=== PATIENT | female | born 1975 | race Two or more races ===

== ENCOUNTER 2023-08-31 10:09 | Emergency (ER) | payer MEDICAID, OTHER ==
[~2023-08-31] VITALS: Ht 154.9 cm; Wt 120.0 kg
[2023-08-31] MEDS ORDERED: ALBUTEROL SULF 2.5 MG/0.5ML(0.5%) NEB SOLN NEB ONE (10:45)
[2023-08-31] MEDS ORDERED: IPRATROPIUM BROM 0.5 MG/2.5ML INH SOL NEB ONE (10:45)
[2023-08-31 10:49] VITALS: BP 126/83; PULSE 110; TEMP 98.5
[2023-08-31 10:56] VITALS: RESP 24; O2SAT 96
[2023-08-31] MEDS ORDERED: DexAMETHasone SOD PHOS 10MG/1ML VIAL INJ IM ONE (11:00)
[2023-08-31 12:05] LABS: Rapid Influenza A Negative (Negative); Rapid Influenza B Negative (Negative)
[2023-08-31 12:07] LABS: COVID19 ANTIGEN SOFIA FIA NEGATIVE (NEGATIVE)
[2023-08-31 12:27] LABS: Urine Bacteria FEW /hpf (None Seen); Urine Blood Negative /uL (Negative); Urine Clarity HAZY (Clear); Urine Color Yellow (Yellow); Urine Hyaline Cast FEW /lpf (0 - 2); Urine Mucus FEW (None Seen); Urine Protein, UAD 1+ (Negative); Urine Specific Gravity 1.026 (1.001-1.035); Urine Urobilinogen Normal (Negative); Urine WBC 1 /hpf (0 - 5); Urine pH 5.5 (5.0-8.0)
[2023-08-31] MEDS ORDERED: AZIT-81 PO (13:43)
[2023-08-31] MEDS ORDERED: LORA10CA PO (13:43)
[2023-08-31] MEDS ORDERED: ACET500T58 PO (13:43)
[2023-08-31] MEDS ORDERED: BENZ100C97 PO (13:43)
== END 2023-08-31 13:59 | disposition home or self-care (01) ==
LOC: ER 10:09
DX: J40 Bronchitis, not specified as acute or chronic (principal); E66.01 Morbid (severe) obesity due to excess calories; Z68.43 Body mass index [BMI] 50.0-59.9, adult; Z20.822 Contact with and (suspected) exposure to COVID-19
CPT/HCPCS: 36415; 71046; 81001; 87426; 87804; 94640; 96372; 99284; J1100; J7644

== ENCOUNTER 2023-12-26 12:10 | Emergency (ER) | payer MEDICAID ==
[~2023-12-26] VITALS: Ht 154.9 cm; Wt 105.4 kg
[~2023-12-26 12:10] MED LIST: ACET500T58 PO; AZIT-185 PO; BENZ100C97 PO; LORA10CA PO
[2023-12-26 13:02] VITALS: BP 155/98; PULSE 91; RESP 16; TEMP 97.6; O2SAT 98
[2023-12-26] MEDS: HYDROcodone-ACET 5/325MG TAB PO ONE (13:31)
[2023-12-26] MEDS ORDERED: IBUP-1456 PO (14:23)
== END 2023-12-26 14:24 | disposition home or self-care (01) ==
LOC: ER 12:10
DX: S46.812A Strain of other muscles, fascia and tendons at shoulder and upper arm level, left arm, initial encounter (principal); S00.83XA Contusion of other part of head, initial encounter; Z79.899 Other long term (current) drug therapy; W01.0XXA Fall on same level from slipping, tripping and stumbling without subsequent striking against object, initial encounter; Y93.89 Activity, other specified; Y92.89 Other specified places as the place of occurrence of the external cause; Y99.8 Other external cause status
CPT/HCPCS: 70450; 70486; 73060

== ENCOUNTER 2024-12-14 08:45 | Inpatient (IN) | payer MEDICAID ==
[~2024-12-14] VITALS: Ht 154.9 cm; Wt 96.5 kg
[~2024-12-14 08:45] MED LIST changes: +IBUP-1456 PO
--- NOTE | 2024-12-14 09:05 | ECG ---
[facility] Test Date: 2024-12-14 Test Time: 09:01:52 Pat Name: OBI STUART Department: ER Room: 0298T Gender: F Lecturer Of Portuguese: GP : 1975 Requested By: NATHALIE RAI Order Number: [id number] Reading MD: Drake Barcenas Measurements Intervals [place] Rate: 74 P: 54 FL: 162 QRS: 40 QRSD: 97 T: 3 QT: 373 QTc: 414 Interpretive Statements Sinus rhythm Probable LVH with secondary repol abnrm Abnormal inferior Q waves Borderline ST elevation, lateral leads Electronically Signed On 12-15-2024 20:54:06 PDT by Drake Barcenas Please click the below link to view image of tracing.
--- NOTE | 2024-12-14 09:16 | ED.PDOC ---
History of Present Illness HPI Comments 49-year-old female came to the ER stating that she has been having left side flank pain which started today. She states that she passed out yesterday while talking to his family members yesterday. She states that she is dizzy while ambulating. History of hypotension sickle cell gastric bypass surgery. Denies any other symptoms. Chief Complaint: Syncope Time Seen by MD: 09:00 Primary Care Provider: UNKNOWN Reviewed Notes: Nurses Notes, Medications, Allergies Allergies: Coded Allergies: NO KNOWN ALLERGIES (Unverified , 08/31/23) Home Meds Active Scripts Ibuprofen (Ibuprofen) 800 Mg Tab, 1 TAB PO TID, #30 TAB Prov:[place] 12/26/23 Acetaminophen (Acetaminophen) 500 Mg Tab, 500 MG PO Q4HP PRN, #30 TAB Prov:HANNA MARIE 08/31/23 Benzonatate (Benzonatate) 100 Mg Cap, 1 CAP PO TID, #20 CAP Prov:HANNA MARIE 08/31/23 Loratadine (Claritin) 10 Mg Cap, 10 MG PO DAILY for 14 Days, #14 CAP Prov:HANNA MARIE 08/31/23 Azithromycin (ZITHROMAX TABLET) 250 Mg Tb, 250 MG PO DAILY for 5 Days, #6 TAB Patient should utilize 2 tablets on day 1 and then 1 tablet on day 2 through 5. Prov:HANNA MARIE 08/31/23 Information Source: Patient Mode of Arrival: Ambulatory Severity: Moderate Timing: Days Duration: Since onset Past Medical History PAST MEDICAL HISTORY: HTN Surgical History: Denies all surgeries REFERENCE TEST CLERK History: No Pertinent REFERENCE TEST CLERK History Family History Family History: Reviewed,noncontributory to illness, No family hx of Cancer, No family hx of DM, No family hx of Heart roxana, No family hx of HTN, No family hx ofKidney roxana, No family hx of Liver roxana, No family hx of Lung roxana, No family hx of Stroke Social History Smoker: Non-Smoker Alcohol: Occasionally Drugs: Denies Drug Use Lives In: Home Constitutional: denies: chills, diaphoresis, fatigue, fever, malaise, sweats, weakness, others EENTM: denies: blurred vision, double vision, ear bleeding, ear discharge, ear drainage, ear pain, ear ringing, eye pain, eye redness, hearing loss, mouth pain, mouth swelling, nasal discharge, nose bleeding, nose congestion, nose pain, photophobia, tearing, throat pain, throat swelling, voice changes, others Respiratory: denies: cough, hemoptysis, orthopnea, SOB at rest, shortness of breath, SOB with excertion, stridor, wheezing, others Cardiovascular: reports: syncope; denies: chest pain, dizzy spells, jessenia phoresis, Dyspnea on exertion, edema, irregular heart beat, left arm pain, lightheadedness, palpitations, PND, others Gastrointestinal: denies: abdomen distended, abdominal pain, blood streaked bowels, constipated, diarrhea, dysphagia, difficulty swallowing, hematemesis, melena, nausea, poor appetite, poor fluid intake, rectal bleeding, rectal pain, vomiting, others Genitourinary: denies: abnormal vagina bleeding, burning, dyspareunia, dysuria, flank pain, frequency, hematuria, incontinence, pain, , vagina discharge, urgency, others Neurological: reports: dizziness; denies: fainting, headache, left sided numbness, left sided weakness, numbness, paresthesia, pre-existing deficit, right sided numbness, right sided weakness, seizure, speech problems, tingling, tremors, weakness, others Musculoskeletal: denies: back pain, gout, joint pain, joint swelling, muscle pain, muscle stiffness, neck pain, others Integumetry: denies: bruises, change in color, change in hair/nails, dryness, laceration, lesions, lumps, rash, wounds, others Allergic/Immunocompromised: denies: Difficulty Healing, Frequent Infections, Hi ves, Itching, others Hematologic/Lymphatic: denies: anemia, blood clots, easy bleeding, easy bruising, swollen glands, others Endocrine: denies: excessive hunger, excessive sweating, excessive thirst, excessive urination, flushing, intolerance to cold, intolerance to heat, unexplained weight gain, unexplained weight loss, others Psychiatric: denies: anxiety, bipolar disorder, depression, hopeless, panic disorder, schizophrenia, sleepless, suicidal, others Physical Exam General Appearance: Moderate Distress HEENT: Normal ENT Inspection, Pharynx Normal, TMs Normal Neck: Full Range of Motion, Non-Tender, Normal, Normal Inspection Respiratory: Chest Non-Tender, Lungs Clear, No Accessory Muscle Use, No Respiratory Distress, Normal Breath Sounds Cardiovascular: No Edema, No JVD, No Murmur, No Gallop, Normal Peripheral Pulses, Regular Rate/Rhythm Breast Exam: Deferred Gastrointestinal: No Organomegaly, Non Tender, No Pulsatile Mass, Normal Bowel Sounds, Soft Genitalia: Deferred Pelvic: Deferred Rectal: Deferred Extremities: No calf tenderness, Normal capillary refill, Normal inspection, Normal range of motion, Non-tender, No pedal edema Musculoskeletal : Apperance: Normal Neurologic: Alert, orthotic practitioner II-XII nml as Tested, No Motor Deficits, Normal Affect, Normal Mood, No Sensory Deficits Cerebellar Function: NOT DONE Reflexes: NOT DONE Skin: Dry, Normal Color, Warm Peripheral Pulses: 3+ Radial (R), 3+ Radial (L) Lymphatic: No Adenopathy Was a procedure done? Was a procedure done?: No EKG EKG : Pulse Rate (adult): 90 [place]: Normal Cardiac Rhythm: NSR Differential Dx Considerations may include: Anemia Electrolyte imbalance X-Ray, Labs, Meds, VS Vital Signs Date Time Temp Pulse Resp B/P (MAP) Pulse Ox O2 Delivery O2 Flow Rate FiO2 12/14/24 11:03 97.9 78 15 151/109 (123) 96 97.9 12/14/24 09:16 90 12/14/24 09:01 74 12/14/24 09:00 98.3 85 20 149/87 (107) 96 98.3 Lab Test 12/14/24 10:55 12/14/24 08:58 12/14/24 05:35 Range/Units Urine Color Pending Urine Clarity Pending Urine pH Pending Urine Specific [place] Pending Urine Protein Pending Urine Ketones Pending Urine Blood Pending Urine Nitrite Pending Urine Bilirubin Pending Urine Urobilinogen Pending Urine Leukocyte Esterase Pending Urine RBC Pending Urine Microscopic WBC Pending Urine Squamous Epithelial Cells Pending Urine Bacteria Pending Urine Glucose Pending POC Glucose 94 70-106 mg/dl White Blood Count 6.2 4.4-10.8 10^3/uL Red Blood Count 4.38 4.0-5.20 10^6/uL Hemoglobin 13.1 12.2-16.2 g/dL Hematocrit 38.2 36.0-46.0 % Mean Corpuscular Volume 87.3 80.0-100.0 fL Mean Corpuscular Hemoglobin 29.8 28.0-32.0 pg Mean Corpuscular Hemoglobin Concent 34.2 32.0-36.0 g/dL Red Cell Distribution Width 17.4 H 11.8-14.3 % Platelet Count 224 140-450 10^3/uL Mean Platelet Volume 9.3 6.9-10.8 fL Neutrophils (%) (Auto) 48.0 37.0-80.0 % Lymphocytes (%) (Auto) 42.3 10.0-50.0 % Monocytes (%) (Auto) 8.0 0.0-12.0 % Eosinophils (%) (Auto) 1.3 0.0-7.0 % Basophils (%) (Auto) 0.4 0.0-2.0 % Neutrophils # (Auto) 3.0 1.6-8.6 10 ^3/uL Lymphocytes # (Auto) 2.6 0.4-5.4 10 ^3/uL Monocytes # (Auto) 0.5 0-1.3 10 ^3/uL Eosinophils # (Auto) 0.1 0-0.8 10 ^3/uL Basophils # (Auto) 0 0-0.2 10 ^3/uL Nucleated Red Blood Cells 0.2 % Sodium Level 142 136-145 mmol/L Potassium Level 3.6 3.5-5.1 mmol/L Chloride Level 109 H 98-107 mmol/L Carbon Dioxide Level 26 20-31 mmol/L Anion Gap 7 5-15 Blood Urea Nitrogen 7 L 9-23 mg/dL Creatinine 0.65 0.550-1.02 mg/dL Glomerular Filtration Rate Calc 107 >90 mL/min BUN/Creatinine Ratio 10.8 10.0-20.0 Serum Glucose 89 74-106 mg/dL Calcium Level 9.4 8.7-10.4 mg/dL Troponin I High Sensitivity < 3 L </=34 ng/L EXAM: CT HEAD WITHOUT CONTRAST INDICATION: tia TECHNIQUE: CT of the head without intravenous contrast. Radiation Dose : 1. Head: CT Dose: CTDI volume is 49.72 mGy. Dose-length product is 697.86 mGy*cm The dose indicators for CT are the volume Computed Tomography (CT) Dose Index (CTDIvol) and the Dose Length Product (DLP), and are measured in units of mGy and mGy-cm, respectively. These indicators are not patient dose, but values generated from the CT scanner acquisition factors. The report includes radiation exposure data for exposures received during this examination. COMPARISON: CT HEAD WITHOUT CONTRAST on DOS: 12/26/23 FINDINGS: There is no evidence of acute intracranial hemorrhage, extra-axial collection, mass effect, midline shift, herniation or hydrocephalus. The ventricles, sulci and cisterns are age appropriate. The mcgraw-white differentiation is intact. Patchy periventricular and subcortical white matter hypoattenuation is nonspecific but may be related to small vessel ischemic disease. The visualized paranasal sinuses and mastoid air cells are clear. The surrounding soft tissues and osseous structures are unremarkable. IMPRESSION: 1. No acute intracranial abnormality. Radiation optimization: All CT scans at this facility use at least one of these dose optimization techniques: automated exposure control mA and/or kV adjustment per patient size (includes targeted exams where dose is matched to clinical indication) or iterative reconstruction. Patient alert. Complaining of syncope. Vitals stable. Answering questions. Possible TIA. Unable to ambulate without feeling dizzy. Possible autonomic disorder. Establish intravenous access. Blood pressure slightly elevated. Was given clonidine. Neurology consultation. EKG reviewed does not show any acute changes. CT of the head reviewed does not show any acute changes. Cardiac marker within normal limits. WBC within normal limits. Hemoglobin within normal limits. Reviewed her history. Explained to the patient. Continue cardiac monitoring. EKG reviewed does not show any acute changes. Time of 1ST Reevaluation: 09:14 Reevaluation 1ST: Unchanged Patient Education/Counseling: Diagnosis, Treatment, Prognosis Family Education/Counseling: No Family Present Departure 1 Departure Time of Disposition: 09:15 Impression: Primary Impression: Autonomic disorder Additional Impressions: Syncope Qualified Codes: R55 - Syncope and collapse Hypertension Qualified Codes: I10 - Essential (primary) hypertension Disposition: ADMITTED INPATIENT Admit to: Med Surg Condition: Guarded Critical Care Note Critical Care Time?: No Stability Stability form required: No Heart Score Heart Score: Heart Score Response (Comments) Value History Slightly Suspicious 0 EKG Normal 0 Age 45-64 1 Risk Factors >3 or Hx ASHD 2 Troponin Normal limit 0 Total 3 I personally scribed for NATHALIE RAI MD ([email or web address]) on 12/14/24 at 11:25. Electronically submitted by Bo Duran ([email or web address]). NATHALIE RAI MD Dec 14, 2024 09:16
--- NOTE | 2024-12-14 09:47 | DVH ---
EXAM: CT HEAD WITHOUT CONTRAST INDICATION: tia TECHNIQUE: CT of the head without intravenous contrast. Radiation Dose : 1. Head: CT Dose: CTDI volume is 49.72 mGy. Dose-length product is 697.86 mGy*cm The dose indicators for CT are the volume Computed Tomography (CT) Dose Index (CTDIvol) and the Dose Length Product (DLP), and are measured in units of mGy and mGy-cm, respectively. These indicators are not patient dose, but values generated from the CT scanner acquisition factors. The report includes radiation exposure data for exposures received during this examination. COMPARISON: CT HEAD WITHOUT CONTRAST on DOS: 12/26/23 FINDINGS: There is no evidence of acute intracranial hemorrhage, extra-axial collection, mass effect, midline s hift, herniation or hydrocephalus. The ventricles, sulci and cisterns are age appropriate. The mcgraw-white differentiation is intact. Patchy periventricular and subcortical white matter hypoattenuation is nonspecific but may be related to small vessel ischemic disease. The visualized paranasal sinuses and mastoid air cells are clear. The surrounding soft tissues and osseous structures are unremarkable. IMPRESSION: 1. No acute intracranial abnormality. Radiation optimization: All CT scans at this facility use at least one of these dose optimization vega hniques: automated exposure control mA and/or kV adjustment per patient size (includes targeted exam s where dose is matched to clinical indication) or iterative reconstruction.
[2024-12-14 10:07] LABS: Basophils # (auto) 0 10 ^3/uL (0-0.2); Basophils % (auto) 0.4 % (0.0-2.0); Eosinophils # (auto) 0.1 10 ^3/uL (0-0.8); Eosinophils % (auto) 1.3 % (0.0-7.0); Hematocrit 38.2 % (36.0-46.0); Hemoglobin 13.1 g/dL (12.2-16.2); Lymphocytes # (auto) 2.6 10 ^3/uL (0.4-5.4); Lymphocytes % (auto) 42.3 % (10.0-50.0); Mean Corpuscular Hemoglobin 29.8 pg (28.0-32.0); Mean Corpuscular Hgb Conc. 34.2 g/dL (32.0-36.0); Mean Corpuscular Volume 87.3 fL (80.0-100.0); Monocytes # (auto) 0.5 10 ^3/uL (0-1.3); Nucleated Red Blood Cells % 0.2 %; Platelet Count (auto) 224 10^3/uL (140-450); Red Blood Cells 4.38 10^6/uL (4.0-5.20); Red Cell Distribution Width 17.4 % (11.8-14.3); White Blood Cell 6.2 10^3/uL (4.4-10.8)
[2024-12-14 10:10] LABS: Potassium 3.6 mmol/L (3.5-5.1); Sodium 142 mmol/L (136-145)
[2024-12-14 10:11] LABS: Anion Gap 7 (5-15); Calcium 9.4 mg/dL (8.7-10.4); Carbon Dioxide 26 mmol/L (20-31)
[2024-12-14 10:16] LABS: Chloride 109 mmol/L (98-107); Glucose 89 mg/dL (74-106)
[2024-12-14 10:17] LABS: BUN/Creatinine Ratio 10.8 (10.0-20.0); Blood Urea Nitrogen 7 mg/dL (9-23)
[2024-12-14 11:28] LABS: Urine Bacteria FEW /hpf (None Seen); Urine Blood Negative /uL (Negative); Urine Clarity Turbid (Clear); Urine Color Light-Orange (Yellow); Urine Mucus FEW (None Seen); Urine Protein, UAD TRACE (Negative); Urine Specific Gravity 1.021 (1.001-1.035); Urine Squamous Epithelial Cell FEW /hpf (<5); Urine Urobilinogen Normal (Negative); Urine WBC 26 /HPF (0-5); Urine pH 5.5 (5.0-9.0)
--- NOTE | 2024-12-14 22:57 | DVHHPRES ---
History of Present Illness Resident Creating Document: SELVIN LONG RESIDENT History of Present Illness Patient is a 49-year-old female with past medical history of hypertension, sickle cell trait, gastric bypass surgery, who comes in due to flank pain. According to the patient, yesterday on 12/13/24 she started experiencing a left- sided flank pain accompanied with lightheadedness, per patient while she was sitting on the floor she experienced a brief episode of blacking out where she went down on her back and hit the back of her head, denies any confusion after words, denies any similar symptoms before in the past. In the ER UA showed 2+ nitrites, 1+ leukocyte esterase, 26 WBCs and few bacteria, head CT was unremarkable. Patient was also noted to have a left-sided costovertebral angle tenderness and right-sided flank pain and tenderness to palpation, CT abdomen pelvis did not show any perinephric fat stranding. Patient was started on IV ceftriaxone. Past Medical History Hypertension, sickle cell trait Past Surgical History Right arm surgery, gastric bypass surgery Past Social History Smoking: Denies Alcohol: Drinks 2-3 beers daily Drugs: Uses marijuana gummies frequently, denies using any other drugs. Review of Systems Constitutional: Yes: Chills, Malaise; No: Fever, Sweats, Weakness, Other Eyes: No: Pain, Vision change, Conjunctivae inflammation, Eyelid inflammation, Other, Redness ENT: No: Ear pain, Ear discharge, Nose pain, Nose discharge, Nose congestion, Mouth pain, Mouth swelling, Throat pain, Throat swelling, Other Respiratory: No: Cough, Dry, Shortness of breath, SOB with excertion, Wheezing, Hemoptysis, Pleuritic Pain, Sputum, Wheezing, Other Cardiovascular: No: Chest Pain, Palpitations, Orthopnea, Paroxysmal Noc. Dyspnea, Edema, Lt Headedness, Other Gastrointestinal: Diarrhea (Notes having 3+ bowel movements yesterday, watery); No: Nausea, Vomiting, Abdominal Pain, Constipation, Melena, Hematochezia, Other Genitourinary: No Dysuria, No Frequency; Incontinence; No Hematuria, No Retention; Other (Urinary hesitancy) Musculoskeletal: No: other, neck pain, shoulder pain, arm pain, back pain, hand pain, leg pain, foot pain Skin: No: Rash, Lesions, Jaundice, Bruising, Other Neurological: No: Weakness, Numbness, Incoordination, Change in speech, Confusion, Seizures, Other Allergies: Coded Allergies: NO KNOWN ALLERGIES (Unverified , 08/31/23) Medications Current Medications Medications Dose Ordered Sig/Zuleyma Route Start Time Stop Time Status Last Admin Dose Admin Ondansetron HCl 4 mg Q4HP PRN IV 12/14/24 23:00 Ceftriaxone Sodium 50 ml @ 100 mls/hr DAILY@2100 IV 12/15/24 21:00 Exam Vital Signs Vital Signs Date Time Temp Pulse Resp B/P (MAP) Pulse Ox O2 Delivery O2 Flow Rate FiO2 12/14/24 11:03 97.9 78 15 151/109 (123) 96 97.9 General Appearance: Alert, Oriented X3, Cooperative, No acute distress HEENT: Atraumatic, PERRLA, EOMI, Other (Dry mucous membranes) Respiratory: Clear to auscultation, Normal air movement Cardiovascular: Regular rate, Normal S1, Normal S2 Abdominal: Normal bowel sounds, Other (Left costovertebral angle tenderness. Right flank tenderness to palpation) Extremities: Other (Trace lower extremity edema) Skin: No rashes, No breakdown Neuro: Normal gait, Normal speech, Strength at 5/5 X4 ext, Normal tone, Sensation intact Psych/Mental Status: Mental status NL, Mood NL Labs/Xrays Labs Test 12/14/24 10:55 12/14/24 08:58 12/14/24 05:35 Range/Units Urine Color Light-orange Yellow Urine Clarity Turbid H Clear Urine pH 5.5 5.0-9.0 Urine Specific [place] 1.021 1.001-1.035 Urine Protein Trace H Negative Urine Ketones Negative Negative Urine Blood Negative Negative /uL Urine Nitrite 2+ H Negative Urine Bilirubin Negative Negative Urine Urobilinogen Normal Negative mg/dL Urine Leukocyte Esterase 1+ Negative /uL Urine RBC 1 0 - 4 /hpf Urine Microscopic WBC 26 H 0-5 /HPF Urine Squamous Epithelial Cells Few <5 /hpf Urine Bacteria Few H None Seen /hpf Urine Mucus Few None Seen Urine Glucose Normal Normal mg/dL POC Glucose 94 70-106 mg/dl White Blood Count 6.2 4.4-10.8 10^3/uL Red Blood Count 4.38 4.0-5.20 10^6/uL Hemoglobin 13.1 12.2-16.2 g/dL Hematocrit 38.2 36.0-46.0 % Mean Corpuscular Volume 87.3 80.0-100.0 fL Mean Corpuscular Hemoglobin 29.8 28.0-32.0 pg Mean Corpuscular Hemoglobin Concent 34.2 32.0-36.0 g/dL Red Cell Distribution Width 17.4 H 11.8-14.3 % Platelet Count 224 140-450 10^3/uL Mean Platelet Volume 9.3 6.9-10.8 fL Neutrophils (%) (Auto) 48.0 37.0-80.0 % Lymphocytes (%) (Auto) 42.3 10.0-50.0 % Monocytes (%) (Auto) 8.0 0.0-12.0 % Eosinophils (%) (Auto) 1.3 0.0-7.0 % Basophils (%) (Auto) 0.4 0.0-2.0 % Neutrophils # (Auto) 3.0 1.6-8.6 10 ^3/uL Lymphocytes # (Auto) 2.6 0.4-5.4 10 ^3/uL Monocytes # (Auto) 0.5 0-1.3 10 ^3/uL Eosinophils # (Auto) 0.1 0-0.8 10 ^3/uL Basophils # (Auto) 0 0-0.2 10 ^3/uL Nucleated Red Blood Cells 0.2 % Sodium Level 142 136-145 mmol/L Potassium Level 3.6 3.5-5.1 mmol/L Chloride Level 109 H 98-107 mmol/L Carbon Dioxide Level 26 20-31 mmol/L Anion Gap 7 5-15 Blood Urea Nitrogen 7 L 9-23 mg/dL Creatinine 0.65 0.550-1.02 mg/dL Glomerular Filtration Rate Calc 107 >90 mL/min BUN/Creatinine Ratio 10.8 10.0-20.0 Serum Glucose 89 74-106 mg/dL Calcium Level 9.4 8.7-10.4 mg/dL Troponin I High Sensitivity < 3 L </=34 ng/L Assessment/Plan Assessment/Plan Acute complicated UTI, pyelonephritis can not be ruled out Generalized weakness due to above Dizziness due to above - head CT: No acute intracranial abnormality - CT abdomen pelvis: Heather-en-Y gastric bypass surgery with a small bowel anastomosis in the right mid to lower abdomen. No small bowel obstruction, free air, or fluid collection. Normal appendix. Diffuse hepatic steatosis, geographic in the left lobe of the liver. Small hiatal hernia. - IV ceftriaxone - patient refused Tylenol and ibuprofen, [place] 5 once for flank pain - patient denies taking ibuprofen or acetaminophen at home as mentioned in med rec, due to her gastric bypass surgery history Acute onset diarrhea, now improving - ordered stool culture - stool WBCs. Stool occult blood Obesity, class 3 Marijuana dependence - counseled GERD - Protonix Hypertension - resumed home medication hydrochlorothiazide Goals of care: Full code, discussed for >16 minutes on 12/14/2024 Plan discussed with patient Plan discussed with Dr. Castro Plan discussed with: Patient, Other (RN) My Orders Orders - SELVIN LONG RESIDENT Procedure Category Date Status Time Admit ADMIT 12/14/24 Transmitted 22:47 Allergies [place] 12/14/24 In Process 22:47 Code Status CODE 12/14/24 Transmitted 22:47 Ondansetron Hcl PHA 12/14/24 In Process (Zofran) 23:00 Complete Blood Count LAB 12/15/24 Verified 04:00 Comprehensive LAB 12/15/24 Verified Metabolic Panel 04:00 Cardiac DIET 12/15/24 Transmitted Diet-2gna,Lofat,Lochol Breakfast Condition: Unstable [place] 12/14/24 In Process 22:47 Sequential [place] 12/14/24 In Process Compression Device Notify Md Of Changes [place] 12/14/24 In Process From Base 22:47 Ceftriaxone 1gm/50ml PHA 12/15/24 In Process D5w (Rocephin) 21:00 Ceftriaxone 1gm/50ml PHA 12/14/24 In Process D5w (Rocephin) 23:00 Ct Ab Pel Wo Con-No CT 12/14/24 Logged Oral Or Iv 22:47 Beta Hcg, Quantitative LAB 12/14/24 In Process 22:47 Test, Urine LAB 12/14/24 In Process 22:47 Stool Occult Blood LAB 12/14/24 Logged 22:47 Stool Bacterial ALEX 12/14/24 Logged Culture 22:47 Stool Wbc LAB 12/14/24 Logged 22:47 Covid19 Antigen Pari LAB 12/14/24 Logged Rapid Influenza A&B LAB 12/14/24 Logged 22:47 Thyroid Stimulating LAB 12/14/24 In Process Hormone 22:47 Date of Service: Dec 14, 2024 Billing Provider: MIREILLE CASTRO MD Common Visit Codes: 54520-FYRHSMX INP/OBS CARE (HIGH) SELVIN LONG RESIDENT Dec 14, 2024 22:57 MIREILLE CASTRO MD Dec 15, 2024 09:57
[2024-12-14] MEDS ORDERED: ONDANSETRON HCL 4 MG/2 ML VIAL IV PRN (23:00)
[2024-12-14 23:30] VITALS: PULSE 66; RESP 16; O2SAT 96
[2024-12-14 23:34] LABS: Beta HCG, Quantitative 3.5 mIU/mL (1.5-4.2)
[2024-12-14 23:37] LABS: Thyroid Stimulating Hormone 1.35 uIU/mL (0.55-4.78)
[2024-12-14] MEDS: cefTRIAXone 1GM/50ML D5W 50 ML IV ONE (23:42)
[2024-12-14] MEDS: ACETAMINOPHEN 500 MG TAB or CAP PO ONE (23:42)
[2024-12-14] MEDS ORDERED: ACETAMINOPHEN 325 MG TAB PO PRN (23:45)
[2024-12-15] VITALS (7 sets, daily range): BP systolic 125–171; BP diastolic 80–108; PULSE 68–92; RESP 18–19; TEMP 97.4–98; O2SAT 93–100
--- NOTE | 2024-12-15 00:32 | DVH ---
CLINICAL HISTORY: L CVA tenderness TECHNIQUE: CT of the abdomen and pelvis was performed without intravenous contrast. This exam was per formed according to our departmental dose optimization program. Up-to-date CT equipment and radiation dose reduction techniques are utilized as appropriate. CTDI: 22.48+ 0.14 DLP: WID: COMPARISON: None FINDINGS: Lower Thorax: Linear bibasilar scarring or atelectasis. Small hiatal hernia. Mild cardiomegaly. Liver and Biliary system: Normal-sized liver. There is diffuse hepatic steatosis which is geographic in the left lobe of the liver. No definite hepatic lesion. Gallbladder is normal caliber. There is n o biliary ductal dilatation. Spleen: Unremarkable. Adrenal Glands and Kidneys: Normal adrenal glands. Tiny hypodensity in the upper pole left kidney is not optimally evaluated without contrast. No hydronephrosis or nephrolithiasis. Pancreas and Retroperitoneum: Atrophic pancreas. No retroperitoneal lymphadenopathy. Aorta and Major Vessels: Aortoiliac vessels are normal in caliber containing trace calcified atherosc lerotic plaque. Bowel, Mesentery and Peritoneal space: Normal appendix. Normal caliber small and large bowel. Prior R oux-en-Y gastric bypass surgery with a small bowel anastomosis in the right mid to lower abdomen. Sma ll hiatal hernia. There is no free air or fluid collection. Pelvis: Unremarkable. Abdominal wall and Osseous Structures: No destructive osseous lesion. Multilevel lower thoracic and l umbar spondylosis. IMPRESSION: 1. Heather-en-Y gastric bypass surgery with a small bowel anastomosis in the right mid to lower abdomen. No small bowel obstruction, free air, or fluid collection. Normal appendix. 2. Diffuse hepatic steatosis, geographic in the left lobe of the liver. 3. Small hiatal hernia.
[2024-12-15] MEDS: HYDROcodone-ACET 5/325MG TAB PO ONE (02:30)
[2024-12-15] MEDS: hydroCHLOROthiazide 25 MG TAB PO SCH (04:00)
[2024-12-15 05:43] LABS: Basophils # (auto) 0.1 10 ^3/uL (0-0.2); Eosinophils # (auto) 0.1 10 ^3/uL (0-0.8); Eosinophils % (auto) 0.9 % (0.0-7.0); Hematocrit 38.2 % (36.0-46.0); Lymphocytes # (auto) 2.9 10 ^3/uL (0.4-5.4); Lymphocytes % (auto) 35.8 % (10.0-50.0); Mean Corpuscular Hemoglobin 30.5 pg (28.0-32.0); Mean Corpuscular Hgb Conc. 34.1 g/dL (32.0-36.0); Mean Corpuscular Volume 89.3 fL (80.0-100.0); Monocytes # (auto) 0.6 10 ^3/uL (0-1.3); Monocytes % (auto) 7.9 % (0.0-12.0); Neutrophils # (auto) 4.4 10 ^3/uL (1.6-8.6); Neutrophils % (auto) 54.4 % (37.0-80.0); Nucleated Red Blood Cells % 0.2 %; Platelet Count (auto) 219 10^3/uL (140-450); Red Blood Cells 4.28 10^6/uL (4.0-5.20); Red Cell Distribution Width 17.1 % (11.8-14.3)
[2024-12-15 05:56] LABS: Alanine Aminotransferase 21 U/L (7-40); Albumin 3.8 g/dL (3.2-4.8); Alkaline Phosphatase 85 U/L (46-116); Anion Gap 8 (5-15); Aspartate Aminotransferase 21 U/L (13-40); BUN/Creatinine Ratio 10.6 (10.0-20.0); Calcium 9.4 mg/dL (8.7-10.4); Carbon Dioxide 25 mmol/L (20-31); Chloride 105 mmol/L (98-107); Glucose 90 mg/dL (74-106); Potassium 3.6 mmol/L (3.5-5.1); Sodium 138 mmol/L (136-145); Total Protein 7.4 g/dL (5.7-8.2)
[2024-12-15 05:57] LABS: Bilirubin, Total 1.1 mg/dL (0.2-1.0)
[2024-12-15 06:03] LABS: Blood Urea Nitrogen 7 mg/dL (9-23)
[2024-12-15] MEDS: PANTOPRAZOLE 40 MG TAB PO SCH (06:19)
--- NOTE | 2024-12-15 09:18 | DVHPNRES ---
Progress Note Date Seen: Dec 15, 2024 Resident Creating Document: ISIDRO ISBELL RESIDENT Has the PT tested + for MRSA If YES, has PT been informed?: No Medical Necessity Reason Pt with a Central, PICC or Fol: No Subjective Review of Systems Patient is a 49-year-old female with past medical history of hypertension, sickle cell trait, and gastric bypass surgery who presents to ED due to a possible syncope episode On 12/13/24, She reports that while sitting she had a brief episode of syncope with loss of consciousness, with prodromes, during which she fell backward and hit the back of her head and her back, she began experiencing left-sided flank pain after that.She denies any confusion afterward and states this was the first time she experienced such symptoms. In the ED, UA revealed 2+ nitrites, 1+ leukocyte esterase, 26 WBCs, and few bacteria. Head CT was unremarkable. Exam showed left costovertebral angle tenderness and right-sided flank pain with tenderness to palpation. CT abdomen/pelvis did not reveal any perinephric fat stranding. Patient was started on IV ceftriaxone. Patient was placed on telemetry, ECHO and orthostatic vitals were ordered Past Medical History: Hypertension, sickle cell trait Past Surgical History: Right arm surgery, gastric bypass surgery Past Social History: Smoking: Denies Alcohol: Drinks 23 beers daily Drugs: Uses marijuana gummies frequently, denies other drug use. Objective vital signs Vital Sign Date Time Temp Pulse Resp B/P (MAP) Pulse Ox O2 Delivery O2 Flow Rate FiO2 12/15/24 08:00 73 19 98 Room Air* 0 21 12/15/24 08:00 97.7 164/86 (112) 97.7 Total Intake and Output 12/14/24 12/14/24 12/15/24 15:00 23:00 07:00 Intake Total 50 ml Balance 50 ml medications Current Medications Medications Dose Ordered Sig/Zuleyma Route Start Time Stop Time Status Last Admin Dose Admin Ondansetron HCl 4 mg Q4HP PRN IV 12/14/24 23:00 Ceftriaxone Sodium 50 ml @ 100 mls/hr DAILY@2100 IV 12/15/24 21:00 Acetaminophen 650 mg Q6HP PRN PO 12/14/24 23:45 Pantoprazole Sodium 40 mg DAILY@0600 PO 12/15/24 06:00 12/15/24 06:19 40 MG Hydrochlorothiazide 12.5 mg DAILY PO 12/15/24 04:00 Examination General Appearance: Alert, Oriented X3, Cooperative, No acute distress HEENT: Atraumatic, PERRLA, EOMI Respiratory: Clear to auscultation, Normal air movement Cardiovascular: Regular rate, Normal S1, Normal S2 Abdominal: Normal bowel sounds, Other (Left costovertebral angle tenderness. Right flank tenderness to palpation) Extremities: Other (Trace lower extremity edema) Skin: No rashes, No breakdown Neuro: Normal gait, Normal speech, Strength at 5/5 X4 ext, Normal tone, Sensation intact Psych/Mental Status: Mental status NL, Mood NL laboratory and microbiology Laboratory Tests 12/15/24 05:15 Test 12/15/24 05:15 Range/Units Serum Glucose 90 74-106 mg/dL Problem List/Assessment/Plan Problem List/Assessment/Plan Syncope Rule out cardiogenic syncope Rule out vasovagal syncope ECHO Telemetry Orthostatic vitals head CT: No acute intracranial abnormality Acute complicated UTI - CT abdomen pelvis: Heather-en-Y gastric bypass surgery with a small bowel anastomosis in the right mid to lower abdomen. No small bowel obstruction, free air, or fluid collection. Normal appendix. Diffuse hepatic steatosis, geographic in the left lobe of the liver. Small hiatal hernia. - IV ceftriaxone - patient refused Tylenol and ibuprofen, ketorolac given - patient denies taking ibuprofen or acetaminophen at home as mentioned in med rec, due to her gastric bypass surgery history Acute onset diarrhea, now improving - ordered stool culture - stool WBCs. Stool occult blood Obesity, class 3 Marijuana dependence - counseled GERD - Protonix Hypertension - HCTZ -Losartan -Nifedipine Goals of care: Full code, discussed for >16 minutes on 12/14/2024 Plan discussed with patient Plan discussed with Dr. Gonzalez Plan discussed with: Patient, Other (rn) My Orders My Orders Orders - ISIDRO ISBELL Procedure Category Date Status Time Echo 2d Mode Cardiac US 12/15/24 Logged DOP 09:09 Admit ADMIT 12/15/24 Transmitted 09:09 Transfer Orders XFER 12/15/24 Transmitted 09:10 Orthostatic Vital ORDERS 12/15/24 Transmitted Signs 09:11 Date of Service: Dec 15, 2024 Billing Provider: MICHELLE GONZALEZ MD Common Visit Codes: [id number] INP/OBS CARE(HIGH) ISIDRO ISBELL RESIDENT Dec 15, 2024 09:18 MICHELLE GONZALEZ MD Dec 21, 2024 21:51
[2024-12-15 09:43] LABS: COVID19 ANTIGEN SOFIA FIA NEGATIVE (NEGATIVE); Rapid Influenza A Negative (Negative); Rapid Influenza B Negative (Negative)
[2024-12-15] MEDS ORDERED: hydroCHLOROthiazide 25 MG TAB PO SCH (10:00)
[2024-12-15] MEDS: LOSARTAN POTASSIUM 50 MG TAB PO SCH (10:34)
[2024-12-15] MEDS ORDERED: TRAM50TA2 PO (12:31)
[2024-12-15] MEDS ORDERED: HYDR-4798 PO (12:31)
[2024-12-15] MEDS ORDERED: HYDR-2792 PO (12:31)
[2024-12-15] MEDS: KETOROLAC TROMETH 30 MG/ML 1ML VIAL IV PRN (12:42)
[2024-12-15] MEDS: NIFEdipine ER 30 MG TAB PO SCH (13:05)
--- NOTE | 2024-12-15 14:59 | DVHSR ---
APPROVED REPORT EXAM: Two-dimensional and M-mode echocardiogram with Doppler and color Doppler. Blood Pressure: 164/86 mmHg INDICATION work up probable cardiogenic syncope RISK FACTORS Height: 61, Weight: 212 DIMENSIONS LVDd4.4 (3.8-5.7cm)LA (2D)3.9 (1.9-4.0cm)Aortic Root3.2 (2.0-3.7cm) LVDs2.9 (2.5-4.0cm)LA (MM) (1.9-4.0cm)Aortic Cusp Exc1.9 (1.5-2.0cm) EF (%) 65.0 (55-70%)Rt. Atrium3.3 (1.9-4.0cm)Asc. Aorta cm IVSd0.9 (0.7-1.1cm)RV (D) (1.8-2.4cm) PWd0.9 (0.7-1.1cm) Mitral Valve MitralMitral Stenosis E wave1.00m/sMV Mean GR.mmHg A wave0.95m/sMV Peak GR.125mmHg E/A ratio1.12D MVAcm2 DECEL [id number] 1/2 [id number] IVRTmsDop MVA3.50cm2 Aortic Valve Aortic ValveAortic Stenosis V11.29m/Theodore Mean GR.5mmHg V21.50m/Theodore Peak GR.9mmHg LVOT Diameter1.7 (1.8-2.4cm)Doppler AVA1.95cm2 AI P 1/2 Lbnl872.34ms Pulmonic Valve V20.77m/s Tricuspid Valve TR Velocity2.46m/s [id number] Conclusion lvef 70% mild LVH mild mitral regurg mild tricuspid regurg normal rv function no severe valve abnormalities noted
[2024-12-15] MEDS: cefTRIAXone 1GM/50ML D5W 50 ML IV SCH (21:02)
[2024-12-16] VITALS (8 sets, daily range): BP systolic 105–140; BP diastolic 74–90; PULSE 61–82; RESP 16–20; TEMP 97.8–98.1; O2SAT 95–97
[2024-12-16] MEDS: LOSARTAN POTASSIUM 50 MG TAB PO SCH (01:07)
[2024-12-16 05:33] LABS: Basophils # (auto) 0 10 ^3/uL (0-0.2); Basophils % (auto) 0.6 % (0.0-2.0); Eosinophils # (auto) 0.1 10 ^3/uL (0-0.8); Eosinophils % (auto) 1.7 % (0.0-7.0); Hematocrit 36.9 % (36.0-46.0); Hemoglobin 12.5 g/dL (12.2-16.2); Lymphocytes # (auto) 3.1 10 ^3/uL (0.4-5.4); Lymphocytes % (auto) 43.6 % (10.0-50.0); Mean Corpuscular Hemoglobin 30.3 pg (28.0-32.0); Mean Corpuscular Hgb Conc. 33.8 g/dL (32.0-36.0); Mean Corpuscular Volume 89.6 fL (80.0-100.0); Monocytes # (auto) 0.6 10 ^3/uL (0-1.3); Monocytes % (auto) 9.1 % (0.0-12.0); Neutrophils # (auto) 3.2 10 ^3/uL (1.6-8.6); Nucleated Red Blood Cells % 0.4 %; Platelet Count (auto) 203 10^3/uL (140-450); Red Blood Cells 4.12 10^6/uL (4.0-5.20); Red Cell Distribution Width 16.9 % (11.8-14.3)
[2024-12-16 07:55] LABS: Alanine Aminotransferase 20 U/L (7-40); Albumin 3.4 g/dL (3.2-4.8); Alkaline Phosphatase 77 U/L (46-116); Anion Gap 7 (5-15); Aspartate Aminotransferase 24 U/L (13-40); BUN/Creatinine Ratio 7.9 (10.0-20.0); Calcium 9.1 mg/dL (8.7-10.4); Carbon Dioxide 25 mmol/L (20-31); Glucose 84 mg/dL (74-106); Sodium 141 mmol/L (136-145); Total Protein 6.4 g/dL (5.7-8.2)
[2024-12-16 07:56] LABS: Bilirubin, Total 0.8 mg/dL (0.2-1.0)
[2024-12-16 08:03] LABS: Blood Urea Nitrogen 5 mg/dL (9-23); Chloride 109 mmol/L (98-107); Potassium 3.5 mmol/L (3.5-5.1)
--- NOTE | 2024-12-16 21:35 | DVHPN2 ---
Assessment/Plan Assessment/Plan progress note Patient is a 49-year-old female with past medical history of hypertension, sickle cell trait, and gastric bypass surgery who presents to ED due to a possib le syncope episode On 12/13/24, She reports that while sitting she had a brief episode of syncope with loss of consciousness, with prodromes, during which she fell backward and hit the back of her head and her back, she began experiencing left-sided flank pain after that.She denies any confusion afterward and states this was the first time she experienced such symptoms. In the ED, UA revealed 2+ nitrites, 1+ leukocyte esterase, 26 WBCs, and few bacteria. Head CT was unremarkable. Exam showed left costovertebral angle tenderness and right-sided flank pain with tenderness to palpation. CT abdomen/pelvis did not reveal any perinephric fat stranding. Patient was started on IV ceftriaxone. Patient was placed on telemetry, ECHO and orthostatic vitals were ordered seen today during rounds, pain improved. labs ekg imaging reviewed assessment and plan Syncope Rule out cardiogenic syncope Rule out vasovagal syncope ECHO Telemetry Orthostatic vitals head CT: No acute intracranial abnormality Acute complicated UTI - CT abdomen pelvis: Heather-en-Y gastric bypass surgery with a small bowel anastomosis in the right mid to lower abdomen. No small bowel obstruction, free air, or fluid collection. Normal appendix. Diffuse hepatic steatosis, geographic in the left lobe of the liver. Small hiatal hernia. - IV ceftriaxone - patient refused Tylenol and ibuprofen, ketorolac given - patient denies taking ibuprofen or acetaminophen at home as mentioned in med rec, due to her gastric bypass surgery history Acute onset diarrhea, now improving - ordered stool culture - stool WBCs. Stool occult blood Obesity, class 3 Marijuana dependence - counseled GERD - Protonix Hypertension - HCTZ -Losartan -Nifedipine Plan discussed with: Patient Date of Service: Dec 16, 2024 Billing Provider: MICHELLE GONZALEZ MD Common Visit Codes: [id number] INP/OBS CARE(MOD) MICHELLE GONZALEZ MD Dec 16, 2024 21:35
[2024-12-16] MEDS: CYCLOBENZAPRINE HCL 10 MG TAB PO SCH (22:16)
[2024-12-17] VITALS (7 sets, daily range): BP systolic 89–103; BP diastolic 61–76; PULSE 63–73; RESP 17–18; TEMP 97.7–98.3; O2SAT 90–96
[2024-12-17] MEDS ORDERED: IBU600T PO (13:25)
[2024-12-17] MEDS ORDERED: NITR-87 PO (13:25)
[2024-12-17] MEDS ORDERED: TRAM-626 PO (13:25)
[2024-12-17] MEDS ORDERED: CYCL-837 PO (13:25)
[2024-12-17] MEDS ORDERED: ACET-1079 PO (13:25)
--- NOTE | 2024-12-19 14:29 | DVHDSRES ---
Discharge Summary Date of Admission Resident Creating Document: ISIDRO ISBELL RESIDENT Dec 14, 2024 at 22:47 Date of Discharge: Dec 17, 2024 Admitting Diagnosis syncope Labs/Diagnostic Data: Laboratory Results Test 12/16/24 04:35 12/15/24 07:20 12/14/24 10:55 12/14/24 08:58 White Blood Count 7.0 10^3/uL (4.4-10.8) Red Blood Count 4.12 10^6/uL (4.0-5.20) Hemoglobin 12.5 g/dL (12.2-16.2) Hematocrit 36.9 % (36.0-46.0) Mean Corpuscular Volume 89.6 fL (80.0-100.0) Mean Corpuscular Hemoglobin 30.3 pg (28.0-32.0) Mean Corpuscular Hemoglobin Concent 33.8 g/dL (32.0-36.0) Red Cell Distribution Width 16.9 % (11.8-14.3) Platelet Count 203 10^3/uL (140-450) Mean Platelet Volume 9.4 fL (6.9-10.8) Neutrophils (%) (Auto) 45.0 % (37.0-80.0) Lymphocytes (%) (Auto) 43.6 % (10.0-50.0) Monocytes (%) (Auto) 9.1 % (0.0-12.0) Eosinophils (%) (Auto) 1.7 % (0.0-7.0) Basophils (%) (Auto) 0.6 % (0.0-2.0) Neutrophils # (Auto) 3.2 10 ^3/uL (1.6-8.6) Lymphocytes # (Auto) 3.1 10 ^3/uL (0.4-5.4) Monocytes # (Auto) 0.6 10 ^3/uL (0-1.3) Eosinophils # (Auto) 0.1 10 ^3/uL (0-0.8) Basophils # (Auto) 0 10 ^3/uL (0-0.2) Nucleated Red Blood Cells 0.4 % Sodium Level 141 mmol/L (136-145) Potassium Level 3.5 mmol/L (3.5-5.1) Chloride Level 109 mmol/L (98-107) Carbon Dioxide Level 25 mmol/L (20-31) Anion Gap 7 (5-15) Blood Urea Nitrogen 5 mg/dL (9-23) Creatinine 0.63 mg/dL (0.550-1.02) Glomerular Filtration Rate Calc 107 mL/min (>90) BUN/Creatinine Ratio 7.9 (10.0-20.0) Serum Glucose 84 mg/dL (74-106) Calcium Level 9.1 mg/dL (8.7-10.4) Total Bilirubin 0.8 mg/dL (0.2-1.0) Aspartate Amino Transferase (AST) 24 U/L (13-40) Alanine Aminotransferase (ALT) 20 U/L (7-40) Alkaline Phosphatase 77 U/L (46-116) Total Protein 6.4 g/dL (5.7-8.2) Albumin 3.4 g/dL (3.2-4.8) Influenza Type A Antigen Negative (Negative) Influenza Type B Antigen Negative (Negative) SARS-CoV-2 Antigen (Rapid) Negative (NEGATIVE) Urine Color Light-orange (Yellow) Urine Clarity Turbid (Clear) Urine pH 5.5 (5.0-9.0) Urine Specific [place] 1.021 (1.001-1.035) Urine Protein Trace (Negative) Urine Ketones Negative (Negative) Urine Blood Negative /uL (Negative) Urine Nitrite 2+ (Negative) Urine Bilirubin Negative (Negative) Urine Urobilinogen Normal mg/dL (Negative) Urine Leukocyte Esterase 1+ /uL (Negative) Urine RBC 1 /hpf (0 - 4) Urine Microscopic WBC 26 /HPF (0-5) Urine Squamous Epithelial Cells Few /hpf (<5) Urine Bacteria Few /hpf (None Seen) Urine Mucus Few (None Seen) Urine Glucose Normal mg/dL (Normal) Urine Test Negative (Negative) POC Glucose 94 mg/dl (70-106) Test 12/14/24 05:35 Troponin I High Sensitivity < 3 ng/L (</=34) Thyroid Stimulating Hormone (TSH) 1.35 uIU/mL (0.55-4.78) Beta HCG, Quantitative 3.5 mIU/mL (1.5-4.2) Other Laboratory Tests 12/16/24 04:35 Brief Hx & Hospital Course: A 49-year-old female with a past medical history of hypertension, sickle cell trait, and Heather-en-Y gastric bypass presented with syncope and left-sided flank pain. She reported a single episode of loss of consciousness preceded by prodromes while seated. Initial evaluation revealed a positive urinalysis for infection (nitrites, leukocyte esterase, WBCs, and bacteria). CT head was unremarkable, and CT abdomen/pelvis showed post-surgical anatomy without obstruction or fat stranding. She was started on IV ceftriaxone for acute complicated UTI. Stool studies were sent due to diarrhea, which improved. ECHO showed preserved EF with mild mitral and tricuspid regurgitation. She remained hemodynamically stable on telemetry. Patient was discharged home on 12/17/24 with a diagnosis of syncope, autonomic disorder, acute UTI, and bronchitis. Muscle strain and facial contusion were attributed to the fall. She was prescribed acetaminophen, ibuprofen, cyclobenzaprine, macrobid, tramadol, and counseled on marijuana use. Prior medications including azithromycin, benzonatate, and loratadine were stopped. Follow-up was recommended on an outpatient basis. General Appearance: Alert, Oriented X3, Cooperative, No acute distress HEENT: Atraumatic, PERRLA, EOMI Respiratory: Clear to auscultation, Normal air movement Cardiovascular: Regular rate, Normal S1, Normal S2 Abdominal: Normal bowel sounds, Other (Left costovertebral angle tenderness. Right flank tenderness to palpation) Extremities: Other (Trace lower extremity edema) Skin: No rashes, No breakdown Neuro: Normal gait, Normal speech, Strength at 5/5 X4 ext, Normal tone, Sensation intact Psych/Mental Status: Mental status NL, Mood NL Case discussed with Dr Gonzalez Operations or Procedures CLINICAL HISTORY: L CVA tenderness TECHNIQUE: CT of the abdomen and pelvis was performed without intravenous contrast. This exam was performed according to our departmental dose optimization program. Up-to-date CT equipment and radiation dose reduction techniques are utilized as appropriate. CTDI: 22.48+ 0.14 DLP: WID: COMPARISON: None FINDINGS: Lower Thorax: Linear bibasilar scarring or atelectasis. Small hiatal hernia. Mild cardiomegaly. Liver and Biliary system: Normal-sized liver. There is diffuse hepatic steatosis which is geographic in the left lobe of the liver. No definite hepatic lesion. Gallbladder is normal caliber. There is no biliary ductal dilatation. Spleen: Unremarkable. Adrenal Glands and Kidneys: Normal adrenal glands. Tiny hypodensity in the upper pole left kidney is not optimally evaluated without contrast. No hydronephrosis or nephrolithiasis. Pancreas and Retroperitoneum: Atrophic pancreas. No retroperitoneal lymphadenopathy. Aorta and Major Vessels: Aortoiliac vessels are normal in caliber containing trace calcified atherosclerotic plaque. Bowel, Mesentery and Peritoneal space: Normal appendix. Normal caliber small and large bowel. Prior Heather-en-Y gastric bypass surgery with a small bowel anastomosis in the right mid to lower abdomen. Small hiatal hernia. There is no free air or fluid collection. Pelvis: Unremarkable. Abdominal wall and Osseous Structures: No destructive osseous lesion. Multilevel lower thoracic and lumbar spondylosis. IMPRESSION: 1. Heather-en-Y gastric bypass surgery with a small bowel anastomosis in the right mid to lower abdomen. No small bowel obstruction, free air, or fluid collection. Normal appendix. 2. Diffuse hepatic steatosis, geographic in the left lobe of the liver. 3. Small hiatal hernia. EXAM: CT HEAD WITHOUT CONTRAST INDICATION: tia TECHNIQUE: CT of the head without intravenous contrast. Radiation Dose : 1. Head: CT Dose: CTDI volume is 49.72 mGy. Dose-length product is 697.86 mGy*cm The dose indicators for CT are the volume Computed Tomography (CT) Dose Index (CTDIvol) and the Dose Length Product (DLP), and are measured in units of mGy and mGy-cm, respectively. These indicators are not patient dose, but values generated from the CT scanner acquisition factors. The report includes radiation exposure data for exposures received during this examination. COMPARISON: CT HEAD WITHOUT CONTRAST on DOS: 12/26/23 FINDINGS: There is no evidence of acute intracranial hemorrhage, extra-axial collection, mass effect, midline shift, herniation or hydrocephalus. The ventricles, sulci and cisterns are age appropriate. The mcgraw-white differentiation is intact. Patchy periventricular and subcortical white matter hypoattenuation is nonspecific but may be related to small vessel ischemic disease. The visualized paranasal sinuses and mastoid air cells are clear. The surrounding soft tissues and osseous structures are unremarkable. IMPRESSION: 1. No acute intracranial abnormality. Condition at Discharge: Stable Final Diagnosis/Problems List Syncope Ruled out cardiogenic syncope Acute complicated UTI Acute onset diarrhea, now improving Obesity, class 3 Marijuana dependence GERD Hypertension Discharge Disposition: Home Discharge Instruct/Medications Diet: Cardiac 2g Na,low cholest Activity: No Restrictions, As Tolerated Discharge Statement: "Patient was advised to return to the ER or call 911 if any headaches, dizziness, shortness of breath, chest pain, abdominal pain, bleeding, fevers, or worsening of medical condition. Patient was counseled about treatment plan, medications, possible side effects, patientverbalized understanding. All questions were answered to the best of my ability. This discharge took greater then 30 minutes in planning, reviewing documentation, counseling the patient, and discussing with other team members." ASSESSMENT ASSESSMENT Assessment lower back spasms uncomplicated cystitis vasovagal syncope Date of Service: Dec 17, 2024 Billing Provider: MICHELLE GONZALEZ MD Common Visit Codes: [id number] DISCH DAY >30min ISIDRO ISBELL RESIDENT Dec 19, 2024 14:29 MICHELLE GONZALEZ MD Dec 20, 2024 20:22
== END 2024-12-17 15:49 | disposition home or self-care (01) | DRG 463 ==
LOC: ER 08:45 → OVERFLOW 22:47 → TELE-WESTW 12-15 12:03
PROVIDERS: ADMIT Student in an Organized Health Care Education/Training Program; ATTEND Student in an Organized Health Care Education/Training Program
DX: N10 Acute pyelonephritis (principal); K76.0 Fatty (change of) liver, not elsewhere classified; G90.89 Other disorders of autonomic nervous system; E66.01 Morbid (severe) obesity due to excess calories; I10 Essential (primary) hypertension; K44.9 Diaphragmatic hernia without obstruction or gangrene; K21.9 Gastro-esophageal reflux disease without esophagitis; E66.813 Obesity, class 3; F12.20 Cannabis dependence, uncomplicated; Z68.41 Body mass index [BMI] 40.0-44.9, adult; Z98.84 Bariatric surgery status; Z79.1 Long term (current) use of non-steroidal anti-inflammatories (NSAID); Z79.2 Long term (current) use of antibiotics; Z79.899 Other long term (current) drug therapy; K52.9 Noninfective gastroenteritis and colitis, unspecified
CPT/HCPCS: 36415; 70450; 74176; 80048; 80053; 81001; 81025; 82962; 84443; 84484; 84702; 85025; 87426; 87804; 93005; 93306; G0378; J1885